=== PATIENT | female | born 1950 | race Caucasian/White ===

== ENCOUNTER 2017-01-25 16:25 | Emergency (ER) | payer OTHER, MEDICARE ==
[2017-01-25 16:37] VITALS: BP 122/71
--- NOTE | 2017-01-25 17:33 | UC ---
UC General HPI - HPI Summary HPI Summary: The patient comes in today for: 1. Diarrhea: Onset: Started this morning. Palliative/provocative: NOthing makes her symptoms better or worse. She took Pedialyte and toast and imodium and none helped. Quality: Liquid water. Region: GI Severity: No pain. Time: Stools come and go. Associated symptoms: Vomiting: None. Fevers: None. Diarrhea: 10-12 stools since this morning. Urination: Normally. She has not urinated without stool. Abdominal pain: None. She will have some cramping around the time that she has a stool, but no other pain. Patient works in a [place] [facility] [place] situation. Many people there have a similar GI syndrome. * - History of Current Complaint Chief Complaint: UCGI Stated Complaint: DIARRHEA Time Seen by Provider: 01/25/17 17:22 Hx Obtained From: Patient - Allergy/Home Medications Allergies/Adverse Reactions: Allergies Allergy/AdvReac Type Severity Reaction Status Date / Time No Known Allergies Allergy Verified 01/07/15 15:43 PMH/Surg Hx/FS Hx/Imm Hx Previously Healthy: Yes Endocrine History Of: Denies: Diabetes, Thyroid Disease, Hyperthyroidism, Hypothyroidism, Dyslipidemia Cardiovascular History Of: Denies: Cardiac Disorders, Hypertension, Pacemaker/ICD, Myocardial Infarction , Congestive Heart Failure, Atrial Fibrillation, Deep Vein Thrombosis, Bleeding Disorders Respiratory History Of: Denies: COPD, Asthma, Bronchitis, Pneumonia, Pulmonary Embolism GI/ History Of: Denies: Gastroesophageal Reflux, Ulcer, Gastrointestinal Bleed, Gall Bladder Disease, Kidney Stones, Diverticulitis, Renal Disease, Urosepsis Neurological History Of: Denies: TIA, CVA, Dementia, Seizures, Migraine Psychological History Of: Denies: Anxiety, Depression, Bipolar Disorder, Schizophrenia, Post Traumatic Stress Disorder Cancer History Of: Denies: Lung Cancer, Colorectal Cancer, Breast Cancer, Prostate Cancer, Cervical Cancer Other History Of: Negative For: HIV, Hepatitis B, Hepatitis C, Anticoagulant Therapy - Surgical History Surgical History: None - Family History Known Family History: Positive: Cardiac Disease, Hypertension - Social History Occupation: Employed Full-time Alcohol Use: Weekly Substance Use Type: None Smoking Status (MU): Never Smoked Tobacco Review of Systems Constitutional: Negative Skin: Negative Eyes: Negative ENT: Negative Respiratory: Negative Cardiovascular: Negative Gastrointestinal: Diarrhea Genitourinary: Negative All Other Systems Reviewed And Are Negative: Yes Physical Exam Triage Information Reviewed: Yes Appearance: Well-Appearing, No Pain Distress, Well-Nourished Vital Signs: Initial Vital Signs Temp 99.7 F 01/25/17 16:33 Pulse 76 01/25/17 16:33 Resp 18 01/25/17 16:33 BP 122/71 01/25/17 16:33 Pulse Ox 98 01/25/17 16:33 Vital Signs Reviewed: Yes Eyes: Positive: Conjunctiva Clear. Negative: Discharge ENT: Positive: Hearing grossly normal. Negative: Pharyngeal erythema, Nasal congestion, Nasal drainage, TM bulging, TM dull, TM red, Tonsillar swelling, Tonsillar exudate Dental: Negative: Gross Decay/Caries @, Dental Fracture @ Neck: Positive: Supple, Nontender, No Lymphadenopathy. Negative: Nuchal Rigidity Respiratory: Positive: Chest non-tender, Lungs clear, Normal breath sounds, No respiratory distress, No accessory muscle use. Negative: Crackles, Wheezing Cardiovascular: Positive: RRR, No Murmur Abdomen Description: Positive: Nontender, No Organomegaly, Soft. Negative: Distended, Guarding Musculoskeletal: Positive: Strength Intact, ROM Intact, No Edema Neurological: Positive: Alert, Muscle Tone Normal Psychological: Positive: Age Appropriate Behavior, Consolable Skin: Negative: rashes, breakdown Course/Dx - Course Course Of Treatment: Patient was told that she had viral gastroenteritis. She was encouraged to drink liquids to keep her urine colorless like water and generally recommended that she not take medications such as Imodium to allow the GI tract to clear itself. She declined any anti-nausea or cramping medication. - Differential Dx - Multi-Symptom Provider Diagnoses: Viral gastroenteritis Discharge - Discharge Plan Condition: Stable Disposition: HOME Patient Education Materials: Gastroenteritis (ED) Forms: *Work Release Referrals: Geoffrey Douglas MD [Primary Care Provider] -
== END 2017-01-25 17:45 | disposition home or self-care (01) ==
LOC: UCEAST 16:25
DX: A08.39 Other viral enteritis (principal)
CPT/HCPCS: 99211; G0463

== ENCOUNTER 2017-10-26 11:18 | Emergency (ER) | payer MEDICARE, OTHER ==
[2017-10-26 11:36] VITALS: BP 126/69
--- NOTE | 2017-10-26 12:14 | UC ---
Respiratory Complaint HPI - HPI Summary HPI Summary: Patient states she was not tested for the flu but was told she had bronchitis when she went to an urgent care while visiting her granddaughter--She sates she works at [employer] and they want her to get checked before she comes back to work - History of Current Complaint Chief Complaint: UCRespiratory Stated Complaint: COUGH Time Seen by Provider: 10/26/17 12:05 Hx Obtained From: Patient ?: No Onset/Duration: Sudden Onset, Lasting Weeks - 2, Resolved Timing: Constant Severity Initially: Moderate Severity Currently: None Character: Cough: Nonproductive Aggravating Factors: Nothing Alleviating Factors: Nothing Associated Signs And Symptoms: Positive: URI - Allergies/Home Medications Allergies/Adverse Reactions: Allergies Allergy/AdvReac Type Severity Reaction Status Date / Time No Known Allergies Allergy Verified 10/26/17 11:36 PMH/Surg Hx/FS Hx/Imm Hx Previously Healthy: Yes Other History Of: Negative For: HIV, Hepatitis B, Hepatitis C, Anticoagulant Therapy - Surgical History Surgical History: None - Family History Known Family History: Positive: Cardiac Disease, Hypertension - Social History Occupation: Employed Full-time Lives: With Family Alcohol Use: Occasionally Substance Use Type: None Smoking Status (MU): Never Smoked Tobacco - Immunization History Most Recent Influenza Vaccination: 2017 Review of Systems Constitutional: Negative Skin: Negative Eyes: Negative ENT: Negative Respiratory: Cough Cardiovascular: Negative Gastrointestinal: Negative Genitourinary: Negative Motor: Negative Neurovascular: Negative Musculoskeletal: Negative Neurological: Negative Psychological: Negative Is Patient Immunocompromised?: No All Other Systems Reviewed And Are Negative: Yes Physical Exam Triage Information Reviewed: Yes Appearance: Well-Appearing, No Pain Distress, Well-Nourished Vital Signs: Initial Vital Signs Temp 97 F 10/26/17 11:32 Pulse 73 10/26/17 11:32 Resp 16 10/26/17 11:32 BP 126/69 10/26/17 11:32 Pulse Ox 100 10/26/17 11:32 Vital Signs Reviewed: Yes Eye Exam: Normal Eyes: Positive: Conjunctiva Clear ENT Exam: Normal ENT: Positive: Normal ENT inspection, Hearing grossly normal, Pharynx normal, TMs normal, Uvula midline. Negative: Nasal congestion, Nasal drainage, Tonsillar swelling, Tonsillar exudate, Trismus, Muffled voice, Hoarse voice, Sinus tenderness Dental Exam: Normal Neck exam: Normal Neck: Positive: Supple, Nontender, No Lymphadenopathy Respiratory Exam: Normal Respiratory: Positive: Chest non-tender, Lungs clear, Normal breath sounds, No respiratory distress, No accessory muscle use Cardiovascular Exam: Normal Cardiovascular: Positive: RRR, No Murmur, Pulses Normal, Brisk Capillary Refill Musculoskeletal Exam: Normal Musculoskeletal: Positive: Strength Intact, ROM Intact, No Edema Neurological Exam: Normal Neurological: Positive: Alert, Muscle Tone Normal Psychological Exam: Normal Skin Exam: Normal UC Diagnostic Evaluation - Laboratory O2 Sat by Pulse Oximetry: 100 Diagnostic Studies Comment: Influenza A/B (-) Respiratory Course/Dx - Course Course Of Treatment: Rest increase fluids, follow with pcp prn - Differential Dx/Diagnosis Provider Diagnoses: URI Discharge - Discharge Plan Condition: Stable Disposition: HOME Patient Education Materials: Upper Respiratory Infection (ED) Forms: *Work Release Referrals: [facility] [Outside] - If Needed
== END 2017-10-26 12:45 | disposition home or self-care (01) ==
LOC: UCEAST 11:18
DX: J06.9 Acute upper respiratory infection, unspecified (principal)
CPT/HCPCS: 87502; 99211; G0463

== ENCOUNTER 2018-07-06 19:13 | Emergency (ER) | payer OTHER, MEDICARE ==
--- OUTSIDE RECORDS SUMMARY | 2018-07-06 19:25 | XMS REPORT | Continuity of Care Document ---
:1950 External Reference #:[id number] Author Name Kortney Polanco O.D. Address [address] [place] [address] Care Team Providers Name Role Phone Terri White M.D. Primary Care Physician Unavailable Payers Type Date Identification Numbers Payment Provider Subscriber Policy Number: [id number] [employer] Marisol Neisha Jean PayID: [id number] [address] [address] [place] [address] Advance Directives Description No Information Available Problems Date Description Provider Status Onset: Tachycardia Active Onset: 01/19/2016 Open-angle glaucoma - borderline Alice Mccormack O.D. Active Onset: 01/19/2016 Hypermetropia Alice Mccormack O.D. Active Onset: 01/19/2016 Presbyopia Alice Mccormack O.D. Active Onset: 01/19/2016 Regular astigmatism Alice Mccormack O.D. Active Onset: 07/04/2017 Combined form of senile cataract Kortney Polanco O.D. Active Onset: 07/04/2017 Open angle with borderline Kortney Polanco O.D. Active findings, high risk, bilateral Onset: 07/04/2017 Tear film insufficiency Kortney Polanco O.D. Active Onset: 02/06/2018 FH: Glaucoma Geoffrey Thomas M.D. Active Onset: 06/26/2018 Conjunctival hemorrhage Kortney Polanco O.D. 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 Tears 017 x day [place], both O.D. eyes Refresh Optive Active Solution 0.5-0.9% 15ml 1 drop Kortney J. 017 both [place], eyes as O.D. needed Aspirin Adult Active Tablets DR 81mg every Unknown Low Dose 000 day Vitamin D 0 Active Tablets 400Unit every Unknown 000 day [place] 3 Active Capsules 1000mg every Unknown 000 day Vitamin C ER Active Tablets ER 1000mg every Unknown 000 day Vitamin Active Tablets 500-400mcg every Unknown A11-Rciod Acid 000 day Multi Vitamin Active Tablets Unknown Daily 000 Turmeric Active Capsules 450mg Unknown 000 Copper Caps Active Capsules 2mg Unknown 000 Cinnamon Active Capsules 500mg Unknown 000 Garlic 0 Active Tablets 200mg Unknown 000 Probiotic Active Capsules Unknown 000 Magnesium 0 Active Capsules 300mg Unknown 000 Vitamin E 0 Active Capsules 400Unit every Unknown 000 day Refresh Tears Hx Solution 0.5% 1 drop Alice Duran 016 - both [place], eyes 2-3 O.D. 017 times a day Oyster Shell Hx Tablets 500-200mg-U Unknown Calcium + D 000 - nit 018 Fluticasone Hx Suspension 50mcg/Act Unknown Propionate 000 - 018 Immunizations Description No Information Available Vital Signs Date Vital Result Comment 06/26/2018 12:04pm BP Systolic 149 mmHg BP Diastolic 86 mmHg Heart Rate 57 /min Results Description No Information Available Procedures Date Code Description Status 02/06/2018 54010 Est Patient Intermediate Exam Completed 07/04/2017 44660 Scanning Computerized Ophthalmic Diagnostic Imag Posterior Completed Seg On 07/04/2017 73717 Visual Field Exam Extended Completed 07/04/2017 47770 Est Patient Comprehensive Exam Completed 01/19/2016 17387 Visual Field Exam Extended Completed 01/19/2016 69800 Determination Of Refractive State Completed 01/19/2016 94453 Est Patient Comprehensive Exam Completed 12/16/2014 65015 Visual Field Exam Extended Completed 12/16/2014 13439 Pachymetry Completed 08/09/2014 66245 New Patient Comprehensive Exam Completed 08/09/2014 40614 Determination Of Refractive State Completed 08/09/2014 27492 Scanning Computerized Ophthalmic Diagnostic Imag Posterior Completed Seg On 03/15/2011 94546 Determination Of Refractive State Completed 03/15/2011 32595 New Patient Comprehensive Exam Completed 11/09/2005 85317 Determination Of Refractive State Completed 11/09/2005 61429 Est Patient Comprehensive Exam Completed 08/24/2004 68958 Determination Of Refractive State Completed 08/24/2004 12144 New Patient Intermediate Exam Completed Encounters Type Date Location Provider Dx Diagnosis Office Visit 12/16/2014 Geoffrey Thomas, Alice Duran [place], 365.01 Low Risk Open 3:30p , [place] Angle Glaucoma/ Suspect Plan of Treatment 06/26/2018 - Kortney Polanco O.D.H11.32 Conjunctival hemorrhage, left eyeComments:use artificial tears 3-4x dayH40.013 Open angle with borderline findings, low risk, bilateralFollow up:01/2019 DFE/VF/OCT ONH25.813 Combined forms of age-related cataract, bilateral
--- NOTE | 2018-07-06 21:06 | UC ---
UC General HPI - History of Current Complaint Chief Complaint: UCGeneralIllness Stated Complaint: ANXIETY,FATIGUE Time Seen by Provider: 07/06/18 21:05 Hx Obtained From: Patient Pain Intensity: 0 - Allergy/Home Medications Allergies/Adverse Reactions: Allergies Allergy/AdvReac Type Severity Reaction Status Date / Time No Known Allergies Allergy Verified 07/06/18 19:32 PMH/Surg Hx/FS Hx/Imm Hx Other History Of: Negative For: HIV, Hepatitis B, Hepatitis C, Anticoagulant Therapy - Surgical History Surgical History: None - Family History Known Family History: Positive: Cardiac Disease, Hypertension - Social History Alcohol Use: Occasionally Substance Use Type: None Smoking Status (MU): Never Smoked Tobacco - Immunization History Most Recent Influenza Vaccination: 2017 Physical Exam - Summary Physical Exam Summary: VITAL SIGNS: Reviewed. GENERAL: Patient is a well developed and nourished female who is sitting comfortable in the examining table. Patient is not in any acute respiratory distress. HEAD AND FACE: No signs of trauma. No ecchymosis, hematomas or skull depressions. No sinus tenderness. EYES: PERRLA, EOMI x 2, No injected conjunctiva, no nystagmus. No photophobia. EARS: Hearing grossly intact. Ear canals and tympanic membranes are within normal limits. Nose: edematous and erythematous nasal mucosa w/ clear nasal discharge. MOUTH: Positive no erythema, no tonsillar enlargement. Uvula in midline. NECK: Supple, trachea is midline, Positive anterior cervical lymphadenopathy, no JVD, no carotid bruit, no c-spine tenderness, neck with full ROM. No meningeal signs, no Kernig's or brudzinskis signs. CHEST: Symmetric, no tenderness at palpation LUNGS: Clear to auscultation bilaterally. No wheezing or crackles. CVS: Regular rate and rhythm, S1 and S2 present, no murmurs or gallops appreciated. ABDOMEN: Soft, non-tender. No signs of distention. No rebound no guarding, and no masses palpated. Bowel sounds are normal. EXTREMITIES: FROM in all major joints, no edema, no cyanosis or clubbing. NEURO: Alert and oriented x 3. No acute neurological deficits. Speech is normal and follows commands. SKIN: Dry and warm Triage Information Reviewed: Yes Vital Signs: Initial Vital Signs Temp 98.7 F 07/06/18 19:26 Pulse 74 07/06/18 19:26 Resp 18 07/06/18 19:26 BP 163/86 07/06/18 19:26 Pulse Ox 100 07/06/18 19:26 Course/Dx - Differential Dx - Multi-Symptom Differential Diagnoses: Other - anixety, OR, depression Provider Diagnoses: 1- Anxiety Discharge - Sign-Out/Discharge Documenting (check all that apply): Patient Departure - D/c home All imaging exams completed and their final reports reviewed: No Studies - Discharge Plan Condition: Stable Disposition: HOME Prescriptions: hydrOXYzine HCL TAB* [Atarax 25 MG TAB*] 25 mg PO TID PRN #30 tab PRN Reason: Anxiety Patient Education Materials: Low-Sodium Diet (ED), Anxiety (ED) Referrals: Terri White MD [Medical Doctor] - 2 Days Additional Instructions: 1-Please take Atarax PO as directed to alleviate anxiety symptoms. Increase fluid intake, eat well, rest and avoid strenuous exercise. 2- Please f/u with your PCP Dr White for further evaluation and treatment on your symptoms and blood work. 3- If you develop severe anxiety w/ chest pain and palpations please go immediately to the Er for further management. 4-Your BP is elevated today. please decrease salt in your diet, monitor BP and if it continues to be elevated please f/u with your PCP for further management - Billing Disposition and Condition Condition: STABLE Disposition: Home
[2018-07-06 21:49] VITALS: BP 170/82
== END 2018-07-06 21:48 | disposition home or self-care (01) ==
LOC: UCEAST 19:13
DX: F41.9 Anxiety disorder, unspecified (principal); R53.83 Other fatigue; Z82.49 Family history of ischemic heart disease and other diseases of the circulatory system; Z84.89 Family history of other specified conditions
CPT/HCPCS: 99212; G0463

== ENCOUNTER 2019-02-08 16:58 | Emergency (ER) | payer MEDICARE, OTHER ==
--- OUTSIDE RECORDS SUMMARY | 2019-02-08 17:04 | XMS REPORT | Continuity of Care Document ---
:1950 External Reference #:[id number] Author Name Padilla Dumont M.D. Address [address] [place] [place] [address] Care Team Providers Name Role Phone Terri White M.D. Primary Care Physician Unavailable Payers Date Identification Numbers Payment Provider Subscriber Policy Number: [id number] [employer] Neisha Jean PayID: [id number] [address] [place] [address] Advance Directives Description No Information Available Problems Active Problems Provider Date Tachycardia Onset: Open-angle glaucoma - borderline Alice Mccormack O.D. Onset: 01/19/2016 Hypermetropia Alice Mccormack O.D. Onset: 01/19/2016 Presbyopia Alice Mccormack O.D. Onset: 01/19/2016 Regular astigmatism Alice Mccormack O.D. Onset: 01/19/2016 Combined form of senile cataract Kortney Polanco O.D. Onset: 07/04/2017 Open angle with borderline findings, high Kortney Polanco O.D. Onset: risk, bilateral Tear film insufficiency Kortney Polanco O.D. Onset: 07/04/2017 FH: Glaucoma Geoffrey Thomas M.D. Onset: 02/06/2018 Conjunctival hemorrhage Kortney Polanco O.D. 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 0.2-0.2-1% Solution Refresh Optive 1 drop both eyes 15ml Kortney Duckworth 07/03/2017 0.5-0.9% as needed [place], O.D. Solution Iron (Ferrous Unknown Gluconate) 256(28Fe) mg Tablets Vitamin E every day Unknown 400Unit Capsules Magnesium Unknown 300mg Capsules Probiotic Unknown Capsules Garlic Unknown 200mg Tablets Cinnamon Unknown 500mg Capsules Turmeric Unknown 450mg Capsules Multi Vitamin Daily Unknown Tablets Vitamin V65-Ipgum Acid every day Unknown 500-400mcg Tablets Vitamin C ER every day Unknown 1000mg Tablets ER Vitamin D every day Unknown 400Unit Tablets Aspirin Adult Low Dose every day Unknown 81mg Tablets DR History Medications Refresh Tears 1 drop both eyes Alice Mccormack, 01/18/2016 - 0.5% Solution 2-3 times a day O.D. 07/03/2017 [place] 3 every day Unknown - 1000mg Capsules 08/21/2018 Oyster Shell Calcium + Unknown - D 06/25/2018 [id number] Tablets Copper Caps Unknown - 2mg Capsules 08/21/2018 Fluticasone Propionate Unknown - 06/25/2018 50mcg/Act Suspension Immunizations Description No Information Available Vital Signs Date Vital Result Comment 06/26/2018 12:04pm BP Systolic 149 mmHg BP Diastolic 86 mmHg Heart Rate 57 /min Results Description No Information Available Procedures Date Code Description Status 08/22/2018 69305 Determination Of Refractive State Completed 08/22/2018 00631 Est Patient Intermediate Exam Completed 06/26/2018 49030 Est Patient Intermediate Exam Completed 02/06/2018 09695 Est Patient Intermediate Exam Completed 07/04/2017 80455 Scanning Computerized Ophthalmic Diagnostic Imag Posterior Completed Seg On 07/04/2017 55122 Visual Field Exam Extended Completed 07/04/2017 94947 Est Patient Comprehensive Exam Completed 01/19/2016 49988 Visual Field Exam Extended Completed 01/19/2016 27129 Determination Of Refractive State Completed 01/19/2016 40236 Est Patient Comprehensive Exam Completed 12/16/2014 99573 Pachymetry Completed 12/16/2014 45094 Visual Field Exam Extended Completed 08/09/2014 27014 Scanning Computerized Ophthalmic Diagnostic Imag Posterior Completed Seg On 08/09/2014 55438 Determination Of Refractive State Completed 08/09/2014 03662 New Patient Comprehensive Exam Completed 03/15/2011 49263 Determination Of Refractive State Completed 03/15/2011 03655 New Patient Comprehensive Exam Completed 11/09/2005 03092 Determination Of Refractive State Completed 11/09/2005 98164 Est Patient Comprehensive Exam Completed 08/24/2004 34861 Determination Of Refractive State Completed 08/24/2004 67690 New Patient Intermediate Exam Completed Encounters Type Date Location Provider Dx Diagnosis Office Visit 12/16/2014 Geoffrey Thomas, Alice Duran [place], 365.01 Low Risk Open 3:30p , pc O.D. Angle Glaucoma/ Suspect Plan of Treatment 01/16/2019 - Padilla Dumont M.D.H40.013 Open angle with borderline findings, low risk, bilateralComments:Smoking can increase the risk of developing or worsening any eye related disease, as well as affect your overall health. If you are a smoker, we strongly recommend that you quit.If you are not a smoker, we strongly recommend that you do not start. Dr. Dumont is considering you a Glaucoma suspect.This means the eye pressure in your eyes are higher than average, your optic nerve appearance is suspicious, or you have strong risk factors; but you have not been diagnosed with Glaucoma. Follow up appointments are very important to keep.Follow up:1 Year Follow Up DFE - NO TESTING. You can expect to have your eyes dilated at your next visit. If Dr. Dumont orders any additional testing, it may require extra time. We recommend that you bring sunglasses, as dilation drops often make you light sensitive until they wear off. We always recommend you bring someone to drive you home if you are uncomfortable driving with your eyes dilated. If you have any questions before your next visit, feel free to call our office at .H25.13 Age- related nuclear cataract, bilateralComments:You have been diagnosed with cataracts. If you are happy with your vision as it is now, then we willsee you at your next scheduled appointment. If you feel like your vision is getting worse before your scheduled appointment, please call Terri or Thelma at .
[2019-02-08 17:18] VITALS: BP 163/88
--- NOTE | 2019-02-08 17:35 | UC ---
Hand/Wrist HPI - HPI Summary HPI Summary: 68-year-old woman comes in with a chief complaint of left thumb pain. Patient was at work pushing a wheelchair today she had sudden onset of left thumb pain. Pain is at the base of the thumb and in the PIP. Denies any DIP pain. Any Movement of the thumb makes the pain worse. Denies any wrist pain. No weakness or numbness. Not moving it decreases the pain. - History Of Current Complaint Chief Complaint: UCUpperExtremity Stated Complaint: THUMB PAIN Time Seen by Provider: 02/08/19 17:08 Hx Last Menstrual Period: post Pain Intensity: 4 - Allergies/Home Medications Allergies/Adverse Reactions: Allergies Allergy/AdvReac Type Severity Reaction Status Date / Time No Known Allergies Allergy Verified 07/06/18 19:32 PMH/Surg Hx/FS Hx/Imm Hx Previously Healthy: Yes Other History Of: Negative For: HIV, Hepatitis B, Hepatitis C, Anticoagulant Therapy - Surgical History Surgical History: None - Family History Known Family History: Positive: Cardiac Disease, Hypertension - Social History Alcohol Use: Occasionally Substance Use Type: None Smoking Status (MU): Never Smoked Tobacco - Immunization History Most Recent Influenza Vaccination: 2017 Review of Systems All Other Systems Reviewed And Are Negative: Yes Constitutional: Positive: Negative Skin: Positive: Negative Eyes: Positive: Negative ENT: Positive: Negative Respiratory: Positive: Negative Cardiovascular: Positive: Negative Gastrointestinal: Positive: Negative Motor: Positive: Other - see hpi Neurovascular: Positive: Negative Musculoskeletal: Positive: Other: - see hpi Neurological: Positive: Negative Psychological: Positive: Negative Is Patient Immunocompromised?: No Physical Exam Triage Information Reviewed: Yes Appearance: Well-Appearing, Well-Nourished, Pain Distress - mild with rom left thumb Vital Signs: Initial Vital Signs Temp 97 F 02/08/19 17:11 Pulse 75 02/08/19 17:11 Resp 16 02/08/19 17:11 BP 163/88 02/08/19 17:11 Pulse Ox 100 02/08/19 17:11 Vital Signs Reviewed: Yes Eye Exam: Normal Eyes: Positive: Conjunctiva Clear Neck: Positive: Supple Respiratory: Positive: No respiratory distress Musculoskeletal: Positive: Other: - The left thumb is tender to palpation proximally at the base and also at the PIP. The DIP is nontender to palpation has full range of motion. Patient complains of pain anytime she moves the DIP are the rest of the thumb. Normal sensation normal capillary refill. Wrist is nontender to palpation. Normal radial pulse. Neurological Exam: Normal Neurological: Positive: Alert, Muscle Tone Normal Psychological Exam: Normal Psychological: Positive: Age Appropriate Behavior Skin Exam: Normal Hand/Wrist Course/Dx - Course Course Of Treatment: Patient Name: IDRIS CARTER Medical Record#: [id number] Ordering Physician: Paulino Daniel MD Acct.#: [id number] : 1950 Age: 68 Sex: F Location: [facility] Exam Date: 02/08/191708 ADM Status: REG ER Order Information: THUMB LEFT Accession Number: [id number] CPT: 34583 INDICATION: Pain at the left thumb after "gripping a wheelchair" COMPARISON: None TECHNIQUE: 3 views of the left thumb were obtained. FINDINGS: The bones are normal alignment. Joint spaces appear maintained. No fracture is seen. IMPRESSION: No acute fracture or dislocation. If the patient's symptoms persist, follow-up imaging is recommended. <Electronically signed by Dansih Harris MD in OV> 02/08/19 [id number] I discussed the x-ray report with the patient. No fracture was seen. Thumb spica splint was placed by nursing patient neurovascularly intact after placement of the thumb spica splint. Plan is ice anti-inflammatories no use of that left hand until cleared by medical provider. Follow-up with occupational medicine or sports medicine. - Differential Dx/Diagnosis Provider Diagnosis: Left thumb sprain Discharge - Sign-Out/Discharge Documenting (check all that apply): Patient Departure All imaging exams completed and their final reports reviewed: Yes - Discharge Plan Condition: Stable Disposition: HOME Patient Education Materials: Finger Sprain (ED) Forms: *Work Release Referrals: Terri White MD [Primary Care Provider] - Eduardo Owusu MD [Medical Doctor] - [facility] [Provider Group] Additional Instructions: FOLLOW UP WITH OCCUPATIONAL MEDICINE OR SPORTS MEDICINE. GET REEVALUATED SOONER IF YOUR CONDITION WORSENS OR ANY QUESTIONS OR CONCERNS. - Billing Disposition and Condition Condition: STABLE Disposition: Home
== END 2019-02-08 18:20 | disposition home or self-care (01) ==
LOC: UCEAST 16:58
DX: S63.602A Unspecified sprain of left thumb, initial encounter (principal); Y92.9 Unspecified place or not applicable; Y99.0 Civilian activity done for income or pay
CPT/HCPCS: 99212; G0463